=== PATIENT | female | born 1965 | race Caucasian/White ===

== ENCOUNTER 2021-02-09 12:35 | Emergency (ER) | payer BC ==
[2021-02-09] MEDS ORDERED: Albuterol/Ipratropium 3.0-0.5 MG/3 ML Neb Soln NEB ONE ×2 (12:43→13:41)
[2021-02-09] MEDS ORDERED: methylPREDNISolone Sodium Succinate 125 MG/2 ML SDV IVPUSH ONE (12:44)
[2021-02-09] MEDS ORDERED: Sodium Chloride 0.9% 10 ML Syringe FLUSH PRN (12:47)
--- NOTE | 2021-02-09 13:01 | EDM.PDOC ---
ED HPI GENERAL MEDICAL PROBLEM - General Chief Complaint: Respiratory Problem Stated Complaint: [id number] TROUBLE BREATHING Time Seen by Provider: 02/09/21 12:58 Source of Information: Reports: Patient, Family - History of Present Illness INITIAL COMMENTS - FREE TEXT/NARRATIVE: Patient is a unfortunate 55-year-old female who presents emerged part today with complaint of shortness of breath. The patient reports that she has had shortness of breath for about the past week. She reports that she was seen on 01/24/2021 she was given at that time an inhaler Zithromax and prednisone. She reports that improved her wheezing symptoms and then it started again worsening approximately 1 week ago. The patient reports that her spouse is a smoker, she is not a smoker, nor she ever smoked, she denies any other previous medical problems, the patient started having worsening wheezing 1 week ago which is progressively worsened today she became severely short of breath and could not hear herself wheezing audibly so she presented to the emergency department for further evaluation she has had cough which is nonproductive no chest pain no nausea no vomiting no fever no chills no known coronavirus exposure no recent travel - Related Data Allergies Allergy/AdvReac Type Severity Reaction Status Date / Time No Known Allergies Allergy Verified 02/09/21 12:48 Home Meds: Home Meds Albuterol Sulfate 2.5 mg IH Q4H PRN #60 ml 02/09/21 [Rx] Albuterol Sulfate [Albuterol Sulfate HFA] 8.5 gm INH Q2H PRN 02/09/21 [History] Nebulizer [Aeroneb Go Nebuliser] 1 each MC Q4H PRN #1 each 02/09/21 [Rx] predniSONE [Prednisone] 50 mg PO DAILY #5 tablet 02/09/21 [Rx] ED ROS GENERAL - Review of Systems Review Of Systems: Comprehensive ROS is negative, except as noted in HPI. Constitutional: Denies: Fever, Chills Respiratory: Reports: Shortness of Breath, Wheezing, Cough. Denies: Sputum, Hemoptysis ED EXAM, GENERAL - Physical Exam Exam: See Below Exam Limited By: No Limitations General Appearance: Alert, WD/WN, Moderate Distress Nose: Normal Inspection, Normal Mucosa, No Blood Throat/Mouth: Normal Inspection, Normal Lips, Normal Teeth, Normal Gums, Normal Oropharynx, Normal Voice, No Airway Compromise Head: Atraumatic, Normocephalic Neck: Normal Inspection, Supple, Non-Tender, Full Range of Motion Respiratory/Chest: Wheezing (diffuse), Accessory Muscle Use, Retractions, Other. No: Respiratory Distress Cardiovascular: Normal Peripheral Pulses, Regular Rate, Rhythm, No Edema, No Gallop, No JVD, No Murmur, No Rub GI/Abdominal: Normal Bowel Sounds, Soft, Non-Tender, No Organomegaly, No Distention, No Abnormal Bruit, No Mass Back Exam: Normal Inspection, Full Range of Motion, NT Extremities: Normal Inspection, Normal Range of Motion, Non-Tender, Normal Capillary Refill, No Pedal Edema Neurological: Alert, Oriented, Normal Cognition, Normal Gait Skin Exam: Warm, Dry, No Rash #1 Interpretation EKG Date: 02/09/21 Time: 13:11 Rhythm: Other (ST) [place]: Normal P-Wave: Present QRS: Normal ST-T: Other (NSST changes) QT: Prolonged EKG Interpretation Comments: no acute ischemic changes Course - Vital Signs Text/Narrative:: Patient symptoms have resolved with nebulizer x3, SPO2 98% on room air no tachypnea no accessory muscle usage no wheezing will discharge patient home outpatient follow-up outpatient with PCP or return for any worsening condition Last Recorded V/S: Last Vital Signs Temp 98.7 F 02/09/21 13:03 Pulse 112 H 02/09/21 13:03 Resp 16 02/09/21 13:03 BP 116/98 H 02/09/21 13:03 Pulse Ox 99 02/09/21 13:03 - Orders/Labs/Meds Orders: Active Orders 24 hr Category Date Time Status EKG Documentation Completion [RC] STAT Care 02/09/21 12:47 Active RT Aerosol Therapy [RC] ASDIRECTED Care 02/09/21 12:43 Active RT Aerosol Therapy [RC] ASDIRECTED Care 02/09/21 13:41 Active Sodium Chloride 0.9% [Saline Flush] Med 02/09/21 12:47 Active 10 ml FLUSH ASDIRECTED PRN Saline Lock Insert [OM.PC] Stat Oth 02/09/21 12:47 Ordered Medication Orders Sodium Chloride (Sodium Chloride 0.9% 10 Ml Syringe) 10 ml FLUSH ASDIRECTED PRN PRN Reason: Keep Vein Open Last Admin: 02/09/21 12:53 Dose: 10 ml Documented by: BRYNN Labs: Laboratory Tests 02/09/21 02/09/21 Range/Units 12:59 12:59 WBC 9.7 (5.0-10.0) 10^3/uL RBC 4.87 (4.2-5.4) 10^6/uL Hgb 14.3 (12.0-16.0) g/dL Hct 43.6 (37.0-47.0) % MCV 89.5 (80-100) fL MCH 29.4 (27.0-34.0) pg MCHC 32.8 L (33.0-35.0) g/dL Plt Count 333 (150-450) 10^3/uL Neut % (Auto) 56.4 (42.2-75.2) % Lymph % (Auto) 30.1 (20.5-50.1) % [place] % (Auto) 7.3 (2-8) % Eos % (Auto) 5.7 H (1.0-3.0) % Baso % (Auto) 0.5 (0.0-1.0) % Sodium 142 (136-145) mmol/L Potassium 3.9 (3.5-5.1) mmol/L Chloride 104 (98-107) mmol/L Carbon Dioxide 29 (21-32) mmol/L Anion Gap 12.9 (7-13) mEq/L BUN 9 (7-18) mg/dL Creatinine 0.88 (0.55-1.02) mg/dL Est Cr Clr Drug Dosing TNP Estimated GFR (MDRD) > 60 BUN/Creatinine Ratio 10.2 (No establ ref range) Glucose 111 H (70-99) mg/dL Calcium 9.2 (8.5-10.1) mg/dL Total Bilirubin 1.1 H (0.2-1.0) mg/dL AST 21 (15-37) U/L ALT 34 (14-59) U/L Alkaline Phosphatase 95 (46-116) U/L Troponin I High Sens 6 (<=51) pg/mL Total Protein 7.8 (6.4-8.2) g/dL Albumin 4.0 (3.4-5.0) g/dL Globulin 3.8 Albumin/Globulin Ratio 1.1 Meds: Medications Generic Name Dose Route Start Last Admin Trade Name Carmen PRN Reason Stop Dose Admin Sodium Chloride 10 ml 02/09/21 12:47 02/09/21 12:53 Sodium Chloride 0.9% 10 Ml Syringe FLUSH 10 ml ASDIRECTED PRN Administration Keep Vein Open Discontinued Medications Generic Name Dose Route Start Last Admin Trade Name Carmen PRN Reason Stop Dose Admin Albuterol/Ipratropium 6 ml 02/09/21 12:43 02/09/21 12:53 Albuterol/Ipratropium 3.0-0.5 Mg/3 Ml Neb Soln NEB 02/09/21 12:44 6 ml ONETIME ONE Administration Albuterol/Ipratropium 3 ml 02/09/21 13:41 02/09/21 14:12 Albuterol/Ipratropium 3.0-0.5 Mg/3 Ml Neb Soln NEB 02/09/21 13:42 3 ml ONETIME ONE Administration Methylprednisolone Sodium Succinate 125 mg 02/09/21 12:44 02/09/21 12:54 Methylprednisolone Sodium Succinate 125 Mg/2 Ml Sdv IVPUSH 02/09/21 12:45 125 mg ONETIME ONE Administration Departure - Departure Time of Disposition: 14:20 Disposition: Home, Self-Care 01 Clinical Impression: COPD exacerbation - Discharge Information *PRESCRIPTION DRUG MONITORING PROGRAM REVIEWED*: No *COPY OF PRESCRIPTION DRUG MONITORING REPORT IN PATIENT EDY: No Prescriptions: Nebulizer [Aeroneb Go Nebuliser] 1 each MC Q4H PRN #1 each PRN Reason: Shortness Of Breath Albuterol Sulfate 2.5 mg IH Q4H PRN #60 ml PRN Reason: Cough predniSONE [Prednisone] 50 mg PO DAILY #5 tablet Instructions: Chronic Obstructive Pulmonary Disease Forms: ED Department Discharge Additional Instructions: Home, rest, use your nebulizer every 4 hours for the next 24 hours then as needed, return as needed for any worsening condition Sepsis Event Note (ED) - Focused Exam Vital Signs: Vital Signs Temp Pulse Resp BP Pulse Ox 02/09/21 13:03 98.7 F 112 H 16 116/98 H 99 - My Orders Last 24 Hours: My Active Orders 02/09/21 12:43 RT Aerosol Therapy [RC] ASDIRECTED 02/09/21 12:47 EKG Documentation Completion [RC] STAT Sodium Chloride 0.9% [Saline Flush] 10 ml FLUSH ASDIRECTED PRN Saline Lock Insert [OM.PC] Stat 02/09/21 13:41 RT Aerosol Therapy [RC] ASDIRECTED - Assessment/Plan Last 24 Hours: My Active Orders 02/09/21 12:43 RT Aerosol Therapy [RC] ASDIRECTED 02/09/21 12:47 EKG Documentation Completion [RC] STAT Sodium Chloride 0.9% [Saline Flush] 10 ml FLUSH ASDIRECTED PRN Saline Lock Insert [OM.PC] Stat 02/09/21 13:41 RT Aerosol Therapy [RC] ASDIRECTED
[2021-02-09 13:30] LABS: ANION GAP 12.9 mEq/L (7-13); CHLORIDE,CL 104 mmol/L (98-107); SODIUM,NA 142 mmol/L (136-145)
--- NOTE | 2021-02-09 13:40 | CR ---
PROCEDURE INFORMATION: Exam: XR Chest Exam date and time: 02/09/2021 1:13 PM Age: 55 years old Clinical indication: Dyspnea TECHNIQUE: Imaging protocol: XR of the chest. Views: 2 views. COMPARISON: No relevant prior studies available. FINDINGS: Lungs: Unremarkable. No consolidation. Pleural spaces: Unremarkable. No pleural effusion. No pneumothorax. Heart/Mediastinum: Unremarkable. No cardiomegaly. Bones/joints: Degenerative changes involve the spine. IMPRESSION: No evidence for acute pulmonary disease.
== END 2021-02-09 14:34 | disposition home or self-care (01) ==
LOC: DL.ED 12:35
DX: J44.1 Chronic obstructive pulmonary disease with (acute) exacerbation (principal); Z79.899 Other long term (current) drug therapy
CPT/HCPCS: 36415; 71046; 80053; 84484; 85025; 94640; 96374; 99285; J2930; J7620-GY

== ENCOUNTER 2021-02-17 14:40 | Emergency (ER) | payer BC ==
[2021-02-17] MEDS ORDERED: Albuterol/Ipratropium 3.0-0.5 MG/3 ML Neb Soln INH ONE (14:41)
[2021-02-17] MEDS ORDERED: Albuterol/Ipratropium 3.0-0.5 MG/3 ML Neb Soln NEB ONE ×2 (14:49→16:57)
[2021-02-17 15:24] LABS: ANION GAP 14.9 mEq/L (7-13); CHLORIDE,CL 103 mmol/L (98-107); SODIUM,NA 144 mmol/L (136-145)
--- NOTE | 2021-02-17 15:31 | CR ---
PROCEDURE INFORMATION: Exam: XR Chest Exam date and time: 02/17/2021 3:09 PM Age: 55 years old Clinical indication: Shortness of breath; Additional info: SOB; HX copd TECHNIQUE: Imaging protocol: XR of the chest. Views: 1 view. COMPARISON: CR Chest 2V 02/09/2021 1:13 PM FINDINGS: Lungs: The lungs are hyperinflated, consistent with underlying small airways disease. Atelectatic changes within the lung bases without focal pneumonia. Pleural spaces: Unremarkable. No pleural effusion. No pneumothorax. Heart/Mediastinum: Unremarkable. No cardiomegaly. Bones/joints: The thoracic spine demonstrates mild degenerative changes at multiple levels. IMPRESSION: 1. The lungs are hyperinflated, consistent with underlying small airways disease. 2. Atelectatic changes within the lung bases without focal pneumonia.
[2021-02-17] MEDS ORDERED: methylPREDNISolone Sodium Succinate 125 MG/2 ML SDV IVPUSH ONE (15:32)
--- NOTE | 2021-02-17 15:51 | EDM.PDOC ---
ED HPI GENERAL MEDICAL PROBLEM - General Chief Complaint: Respiratory Problem Stated Complaint: VERY HARD TIME BREATHING / COPD Time Seen by Provider: 02/17/21 15:51 Source of Information: Reports: Patient, RN, RN Notes Reviewed History Limitations: Reports: No Limitations - History of Present Illness INITIAL COMMENTS - FREE TEXT/NARRATIVE: Zulma is a 55 y/o female with history of COPD who presents to the ED via personal vehicle with complaints of dry cough, shortness of breath, and chest tightness. The patient was examined in this facility one week prior and treated for a COPD exacerbation with a prednisone burst and albuterol nebulizer/inhaler. The patient reports she did experience resolution of symptoms while on steroids, however noticed her symptoms returned about 24 hours after stopping the steroids. The patient denies fever, shaking chills, vision changes, palpitations, dyspepsia, nausea, or vomiting. The patient has not been in to see her primary care provider and has not been started on control therapy for her COPD. Chest Pain Score (Numeric/FACES): 5 - Related Data Allergies Allergy/AdvReac Type Severity Reaction Status Date / Time No Known Allergies Allergy Verified 02/17/21 15:05 Home Meds: Home Meds Albuterol Sulfate 2.5 mg IH Q4H PRN #60 ml 02/09/21 [Rx] Albuterol Sulfate [Albuterol Sulfate HFA] 8.5 gm INH Q2H PRN 02/09/21 [History] Past Medical History - Past Health History Medical/Surgical History: Denies Medical/Surgical History Respiratory History: Reports: COPD [employer] History: Reports: Musculoskeletal History: Reports: Other (See Below) Other Musculoskeletal History: tubal Endocrine/Metabolic History: Reports: Obesity/BMI 30+ - Past Surgical History Musculoskeletal Surgical History: Reports: Carpal Tunnel Social & Family History - Family History Family Medical History: No Pertinent Family History - Tobacco Use Tobacco Use Status *Q: Never Tobacco User Second Hand Smoke Exposure: No - Caffeine Use Caffeine Use: Reports: None - Recreational Drug Use Recreational Drug Use: No ED ROS GENERAL - Review of Systems Review Of Systems: Comprehensive ROS is negative, except as noted in HPI. ED EXAM, GENERAL - Physical Exam Exam: See Below Exam Limited By: Respiratory Distress General Appearance: Alert, Moderate Distress (Increased work of breathing) Eye Exam: Bilateral Eye: EOMI, Normal Inspection, PERRL (3mm) Ears: Normal External Exam, Hearing Grossly Normal Nose: Normal Inspection, Normal Mucosa, No Blood Throat/Mouth: Normal Inspection, Normal Lips, Normal Teeth, Normal Gums, Normal Oropharynx, Normal Voice, No Airway Compromise Head: Atraumatic, Normocephalic Neck: Normal Inspection, Supple, Non-Tender, Full Range of Motion Respiratory/Chest: Respiratory Distress, Wheezing (Bilateral inspiratory and expiratory), Accessory Muscle Use. No: Chest Non-Tender, Crackles, Rales, Rhonchi Cardiovascular: Normal Peripheral Pulses, Regular Rate, Rhythm, No Edema, No Gallop, No JVD, No Murmur, No Rub, Tachycardia, Other (Chest tightness) Peripheral Pulses: 2+: Radial (L), Radial (R) GI/Abdominal: Normal Bowel Sounds, Soft, Non-Tender, No Distention, No Abnormal Bruit, No Mass, Pelvis Stable (Female) Exam: Deferred Rectal (Female) Exam: Deferred Back Exam: Normal Inspection, Full Range of Motion Extremities: Normal Inspection, Normal Range of Motion, Non-Tender, Normal Capillary Refill, No Pedal Edema Neurological: Alert, Oriented, CN II-XII Intact, Normal Cognition, Normal Gait, No Motor/Sensory Deficits Psychiatric: Anxious Skin Exam: Warm, Dry, Intact, Normal Color, No Rash. No: Cyanosis, Jaundice, Mottled, Pallor #1 Interpretation EKG Date: 02/17/21 Time: 15:02 Rhythm: Other (Sinus Tachycardia) Rate (Beats/Min): 108 [place]: Normal P-Wave: Present QRS: Normal ST-T: Normal QT: Normal [place]/PQ Interval: 0.155 Comparison: No Change EKG Interpretation Comments: ST; No evidence of acute myocardial ischemia Course - Vital Signs Last Recorded V/S: Last Vital Signs Temp 99.2 F 02/17/21 14:50 Pulse 92 02/17/21 16:57 Resp 22 H 02/17/21 14:50 BP 147/85 H 02/17/21 14:50 Pulse Ox 96 02/17/21 16:57 - Orders/Labs/Meds Labs: Laboratory Tests 02/17/21 02/17/21 02/17/21 Range/Units 14:55 14:55 14:55 WBC 12.8 H (5.0-10.0) 10^3/uL RBC 5.09 (4.2-5.4) 10^6/uL Hgb 15.2 (12.0-16.0) g/dL Hct 45.6 (37.0-47.0) % MCV 89.6 (80-100) fL MCH 29.9 (27.0-34.0) pg MCHC 33.3 (33.0-35.0) g/dL Plt Count 412 D (150-450) 10^3/uL Neut % (Auto) 64.1 (42.2-75.2) % Lymph % (Auto) 21.5 (20.5-50.1) % [place] % (Auto) 7.6 (2-8) % Eos % (Auto) 6.5 H (1.0-3.0) % Baso % (Auto) 0.3 (0.0-1.0) % Sodium 144 (136-145) mmol/L Potassium 3.9 (3.5-5.1) mmol/L Chloride 103 (98-107) mmol/L Carbon Dioxide 30 (21-32) mmol/L Anion Gap 14.9 H (7-13) mEq/L BUN 9 (7-18) mg/dL Creatinine 0.94 (0.55-1.02) mg/dL Est Cr Clr Drug Dosing TNP Estimated GFR (MDRD) > 60 BUN/Creatinine Ratio 9.6 (No establ ref range) Glucose 139 H (70-99) mg/dL Lactic Acid 1.8 (0.4-2.0) mmol/L Calcium 9.4 (8.5-10.1) mg/dL Total Bilirubin 1.0 (0.2-1.0) mg/dL AST 14 L (15-37) U/L ALT 33 (14-59) U/L Alkaline Phosphatase 93 (46-116) U/L Troponin I High Sens 6 (<=51) pg/mL C-Reactive Protein 1.9 H (0.0-0.9) mg/dL Total Protein 7.9 (6.4-8.2) g/dL Albumin 4.0 (3.4-5.0) g/dL Globulin 3.9 Albumin/Globulin Ratio 1.0 Urine Color (YELLOW) Urine Appearance (CLEAR) Urine pH (5.0-9.0) Ur Specific [place] (1.005-1.030) Urine Protein (NEGATIVE) Urine Glucose (UA) (NEGATIVE) Urine Ketones (NEGATIVE) Urine Occult Blood (NEGATIVE) Urine Nitrite (NEGATIVE) Urine Bilirubin (NEGATIVE) Urine Urobilinogen (0.2-1.0) mg/dL Ur Leukocyte Esterase (NEGATIVE) 02/17/21 Range/Units 16:05 WBC (5.0-10.0) 10^3/uL RBC (4.2-5.4) 10^6/uL Hgb (12.0-16.0) g/dL Hct (37.0-47.0) % MCV (80-100) fL MCH (27.0-34.0) pg MCHC (33.0-35.0) g/dL Plt Count (150-450) 10^3/uL Neut % (Auto) (42.2-75.2) % Lymph % (Auto) (20.5-50.1) % [place] % (Auto) (2-8) % Eos % (Auto) (1.0-3.0) % Baso % (Auto) (0.0-1.0) % Sodium (136-145) mmol/L Potassium (3.5-5.1) mmol/L Chloride (98-107) mmol/L Carbon Dioxide (21-32) mmol/L Anion Gap (7-13) mEq/L BUN (7-18) mg/dL Creatinine (0.55-1.02) mg/dL Est Cr Clr Drug Dosing Estimated GFR (MDRD) BUN/Creatinine Ratio (No establ ref range) Glucose (70-99) mg/dL Lactic Acid (0.4-2.0) mmol/L Calcium (8.5-10.1) mg/dL Total Bilirubin (0.2-1.0) mg/dL AST (15-37) U/L ALT (14-59) U/L Alkaline Phosphatase (46-116) U/L Troponin I High Sens (<=51) pg/mL C-Reactive Protein (0.0-0.9) mg/dL Total Protein (6.4-8.2) g/dL Albumin (3.4-5.0) g/dL Globulin Albumin/Globulin Ratio Urine Color Yellow (YELLOW) Urine Appearance Clear (CLEAR) Urine pH 8.5 (5.0-9.0) Ur Specific [place] 1.025 (1.005-1.030) Urine Protein Negative (NEGATIVE) Urine Glucose (UA) Negative (NEGATIVE) Urine Ketones Negative (NEGATIVE) Urine Occult Blood Negative (NEGATIVE) Urine Nitrite Negative (NEGATIVE) Urine Bilirubin Negative (NEGATIVE) Urine Urobilinogen 0.2 (0.2-1.0) mg/dL Ur Leukocyte Esterase Negative (NEGATIVE) Meds: Medications Discontinued Medications Generic Name Dose Route Start Last Admin Trade Name Freq PRN Reason Stop Dose Admin Albuterol/Ipratropium 3 ml 02/17/21 14:49 02/17/21 14:56 Albuterol/Ipratropium 3.0-0.5 Mg/3 Ml Neb Soln NEB 02/17/21 14:50 3 ml ONETIME ONE Administration Albuterol/Ipratropium 3 ml 02/17/21 16:57 02/17/21 17:09 Albuterol/Ipratropium 3.0-0.5 Mg/3 Ml Neb Soln NEB 02/17/21 16:58 3 ml ONETIME ONE Administration Albuterol/Ipratropium Confirm 02/17/21 17:58 Albuterol/Ipratropium 3.0-0.5 Mg/3 Ml Neb Soln Administered 02/17/21 17:59 Dose 12 ml .ROUTE .STK-MED ONE Methylprednisolone Sodium Succinate 125 mg 02/17/21 15:32 02/17/21 15:49 Methylprednisolone Sodium Succinate 125 Mg/2 Ml Sdv IVPUSH 02/17/21 15:33 125 mg ONETIME ONE Administration - Radiology Interpretation Free Text/Narrative:: [facility] - [facility] Final Radiology Report Call: [phone] assistance Online chat: [email or web address] Name: ZULMA GURROLA Age: 55Years F Date: 02/17/2021 SSN: -- : 1965 Study: CR CHEST 1V FRONTAL Requesting Physician: Amada Randall Images: 1 Addl Studies: Provided Clinical History: SOB; Hx COPD Contrast: Contrast Medium: Contrast Amount: Contrast Method: CONFIDENTIALITY STATEMENT This report is intended only for use by the referring physician, and only in accordance with law. If you received this in error, call [phone]. Page 1 of 1 PROCEDURE INFORMATION: Exam: XR Chest Exam date and time: 02/17/2021 3:09 PM Age: 55 years old Clinical indication: Shortness of breath; Additional info: SOB; HX copd TECHNIQUE: Imaging protocol: XR of the chest. Views: 1 view. COMPARISON: CR Chest 2V 02/09/2021 1:13 PM FINDINGS: Lungs: The lungs are hyperinflated, consistent with underlying small airways disease. Atelectatic changes within the lung bases without focal pneumonia. Pleural spaces: Unremarkable. No pleural effusion. No pneumothorax. Heart/Mediastinum: Unremarkable. No cardiomegaly. Bones/joints: The thoracic spine demonstrates mild degenerative changes at multiple levels. IMPRESSION: 1. The lungs are hyperinflated, consistent with underlying small airways disease. 2. Atelectatic changes within the lung bases without focal pneumonia. Thank you for allowing us to participate in the care of your patient. Dictated and Authenticated by: David Alexander DO 02/17/2021 3:31 PM Central Time ([place] & [place]) - Re-Assessments/Exams Free Text/Narrative Re-Assessment/Exam: 02/19/21 DuoNeb and Solu-Medrol 125mg IVP administered. Patient verbalized improvement in work of breathing following medication administration. Oxygen saturations remain appropriate and RR decreasing. Findings of examination, lab work, and imaging reviewed with patient and . Will treat COPD exacerbation with pulmonary burst and DuoNeb at home. Patient instructed to follow up with primary care provider on Friday to initiate control therapy for COPD. Discussed supportive cares as well as red flag signs and symptoms which would warrant reevaluation. Patient and verbalized understanding and agreement with the plan of care. Departure - Departure Time of Disposition: 17:55 Disposition: Home, Self-Care 01 Condition: Fair Clinical Impression: COPD exacerbation - Discharge Information *PRESCRIPTION DRUG MONITORING PROGRAM REVIEWED*: Not Applicable *COPY OF PRESCRIPTION DRUG MONITORING REPORT IN PATIENT EDY: Not Applicable Instructions: Chronic Obstructive Pulmonary Disease, [id number] Referrals: PCP,None [Primary Care Provider] - Forms: ED Department Discharge Additional Instructions: Rx: prednisone Rx: Duo Neb 1.) Follow up with primary care provider on [place] to initiate control therapy for COPD. 2.) Return to the emergency department with any worsening symptoms despite medications, fever, shaking chills, or chest pain. Sepsis Event Note (ED) - Evaluation Sepsis Screening Result: Possible Sepsis Risk
[2021-02-17] MEDS ORDERED: Albuterol/Ipratropium 3.0-0.5 MG/3 ML Neb Soln ONE (17:58)
== END 2021-02-17 18:05 | disposition home or self-care (01) ==
LOC: DL.ED 14:40
DX: J44.1 Chronic obstructive pulmonary disease with (acute) exacerbation (principal); E66.9 Obesity, unspecified; Z68.38 Body mass index [BMI] 38.0-38.9, adult
CPT/HCPCS: 36415; 71045; 80053; 81003; 83605; 84484; 85025; 86140; 93005; 94640; 96374; 99285; J2930; J7620-GY